=== PATIENT | female | born 1975 | race Caucasian/White ===

== ENCOUNTER 2017-07-13 12:39 | Inpatient (IN) | payer SELFPAY ==
[~2017-07-13] VITALS: Ht 154.9 cm; Wt 67.2 kg
[2017-07-13] MEDS: SODIUM CHLOR 0.9% 1000 ML INJ 1,000 ML IV SCH (02:19)
[2017-07-13 12:53] VITALS: BP 114/63; PULSE 114; RESP 22; TEMP 100.6; O2SAT 100
[2017-07-13] MEDS ORDERED: SODIUM CHLOR 0.9% 1000 ML INJ 1,000 ML IV SCH (14:18)
[2017-07-13 14:21] LABS: AUTOMATED NEUTROPHIL # 10.8 TH/MM3 (1.8-7.7); BASOPHIL % 0.1 % (0.0-2.0); HEMATOCRIT 40.4 % (35.0-46.0); HEMOGLOBIN 13.5 GM/DL (11.6-15.3); LYMPH % 3.9 % (9.0-44.0); LYMPHOCYTE # 0.5 TH/MM3 (1.0-4.8); MEAN CELL VOLUME 91.2 FL (80.0-100.0); MEAN CORPUSCULAR HEMOGLOBIN 30.5 PG (27.0-34.0); MEAN CORPUSCULAR HGB CONC 33.4 % (32.0-36.0); MEAN PLATELET VOLUME 8.6 FL (7.0-11.0); MONOCYTE # 0.5 TH/MM3 (0-0.9); PLATELET COUNT 229 TH/MM3 (150-450); RED BLOOD COUNT 4.43 MIL/MM3 (4.00-5.30); RED CELL DISTRIBUTION WIDTH 13.8 % (11.6-17.2); WHITE BLOOD COUNT 11.7 TH/MM3 (4.0-11.0)
[2017-07-13] MEDS ORDERED: SODIUM CHLORIDE 0.9% FLUSH 10 ML FLUSH IV FLUSH PRN ×2 (14:30→23:30)
[2017-07-13] MEDS ORDERED: KETOROLAC TROMETHAMINE 30 MG/ML (IVP) VIAL IV PUSH ONE (14:30)
[2017-07-13] MEDS ORDERED: ONDANSETRON HCL 4 MG/2 ML VIAL IV PUSH ONE (14:30)
[2017-07-13 14:31] LABS: BACTERIA, URINE RARE /hpf; BILIRUBIN, URINE NEG (NEG); BLOOD, URINE NEG (NEG); GLUCOSE,URINE NEG (NEG); KETONE, URINE 40 mg/dL (NEG); MUCUS URINE FEW /lpf (OCC); NITRITE,URINE NEG (NEG); PH, URINE 8.5 (5.0-8.5); SQUAMOUS EPITHELIAL CELL URINE 5 /hpf (0-5); URINE COLOR YELLOW (YELLW/STRAW); URINE LEUKOCYTE ESTERASE SMALL (NEG)
[2017-07-13 14:41] LABS: ALBUMIN 3.3 GM/DL (3.4-5.0); ALT (GPT) 81 U/L (10-53); AST (GOT) 70 U/L (15-37); BICARBONATE 24.2 MEQ/L (21.0-32.0); BLOOD UREA NITROGEN 10 MG/DL (7-18); CHLORIDE 101 MEQ/L (98-107); CREATININE 0.83 MG/DL (0.50-1.00); GLOMERULAR FILTRATION RATE 77 ML/MIN (>89); GLUCOSE,RANDOM 104 MG/DL (74-106); SODIUM (NA) 136 MEQ/L (136-145)
[2017-07-13 14:43] LABS: ALKALINE PHOSPHATASE 73 U/L (45-117); TOTAL BILIRUBIN ADULT 0.3 MG/DL (0.2-1.0); TOTAL PROTEIN 7.5 GM/DL (6.4-8.2)
--- NOTE | 2017-07-13 15:27 | PD ---
HPI Chief Complaint: Abdominal Pain Time Seen by Provider: 14:16 Travel History International Travel<30 days: No Contact w/Intl Traveler<30days: No Traveled to known affect area: No History of Present Illness HPI 41-year-old female presents to the emergency department with complaint of tailbone pain, joint pain in both of her hips, subjective fever, and vomiting 3 days. Says she is having some pelvic pain and feeling like something is coming out of her vagina after having sex for the first time a week ago after 1 year of abstinence. Denies abnormal vaginal discharge, vaginal bleeding, odor. Denies dysuria, hematuria. Denies injury. Denies IV drug use or current cancer. Denies encopresis, incontinence, saddle anesthesias. Denies paresthesias, loss of sensation, decreased range of motion, decreased strength to all extremities. Reports marijuana use. Denies alcohol use. Has tried taking MiraLAX, Metamucil, ibuprofen, children's Tylenol for symptom management. Rates pain 10/10. Describes it as a pressure. No known aggravating or relieving factors. 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 History of asthma. No known allergies. Has no other medical complaints. No other modifying factors or associated signs and symptoms. [facility] Past Medical History LMP: 2012, states she went through menopause Social History Tobacco Use: No Allergies-Medications (Allergen,Severity, Reaction): Coded Allergies: No Known Allergies (Unverified , 07/13/17) Review of Systems Except as stated in HPI: all other systems reviewed are Neg Physical Exam Narrative GENERAL: Well-nourished, well-developed female patient, in no acute distress; febrile, nontoxic-appearing SKIN: Warm and dry. HEAD: Atraumatic. Normocephalic. EYES: Pupils equal and round. No scleral icterus. No injection or drainage. ENT: Mucosa pink and moist. Airway patent. NECK: Trachea midline. CARDIOVASCULAR: Regular rate and rhythm. No murmur appreciated. RESPIRATORY: No accessory muscle use. Clear to auscultation. Breath sounds equal bilaterally. GASTROINTESTINAL: Abdomen soft, tenderness on palpation to lower abdomen, nondistended. Hepatic and splenic margins not palpable. Bowel sounds are active 4 quadrants. Nonrigid. No rebound tenderness. No guarding. MUSCULOSKELETAL: Bilateral lower extremities supple and non-tense with 2+ pedal pulses and sensory intact; with full range of motion and 5/5 strength. 2 + DTRs bilaterally. Active dorsiflexion and extension of bilateral feet. Bilateral straight leg raise is negative for low back pain. Ambulatory in room with normal gait. Sitting up in bed at 90. No obvious deformities. No clubbing. No cyanosis. No edema. BACK: Midline point tenderness on palpation of the lumbar spine. Tenderness on palpation of iliosacral area. No obvious deformities. NEUROLOGICAL: Awake and alert. Oriented 3. No obvious cranial nerve deficits. Motor grossly within normal limits. Normal speech. PSYCHIATRIC: Appropriate mood and affect; insight and judgment normal. Data Data Last Documented VS Vital Signs Date Time Temp Pulse Resp B/P (MAP) Pulse Ox O2 Delivery O2 Flow Rate FiO2 07/13/17 12:53 100.6 114 22 114/63 (80) 100 Orders Orders Complete Blood Count With Diff (07/13/17 12:58) Comprehensive Metabolic Panel (07/13/17 12:58) Lipase (07/13/17 12:58) Lactic Acid (07/13/17 12:58) Urinalysis - C+S If Indicated (07/13/17 12:58) Ed Urine Pregnancytest Poc (07/13/17 12:59) Ondansetron Inj (Zofran Inj) (07/13/17 14:30) Iv Access Insert/Monitor (07/13/17 14:18) Sodium Chlor 0.9% 1000 Ml Inj (Ns 1000 M (07/13/17 14:18) Sodium Chloride 0.9% Flush (Ns Flush) (07/13/17 14:30) Ketorolac Inj (Toradol Inj) (07/13/17 14:30) Urine Culture (07/13/17 13:29) Ct Abd/Pel W Iv Contrast(Rout) (07/13/17 14:33) Diphenhydramine Inj (Benadryl Inj) (07/13/17 15:30) Prochlorperazine Inj (Compazine Inj) (07/13/17 15:30) Ct Lumb Spine W Iv Contrast (07/13/17 ) Ceftriaxone Inj (Rocephin Inj) (07/13/17 16:00) Lactic Acid (07/13/17 18:57) Acetaminophen (Tylenol) (07/13/17 20:00) Ibuprofen (Motrin) (07/13/17 20:00) Admit Order (Ed Use Only) (07/13/17 20:12) Labs Laboratory Tests Test 07/13/17 13:29 07/13/17 14:24 White Blood Count 11.7 TH/MM3 Red Blood Count 4.43 MIL/MM3 Hemoglobin 13.5 GM/DL Hematocrit 40.4 % Mean Corpuscular Volume 91.2 FL Mean Corpuscular Hemoglobin 30.5 PG Mean Corpuscular Hemoglobin Concent 33.4 % Red Cell Distribution Width 13.8 % Platelet Count 229 TH/MM3 Mean Platelet Volume 8.6 FL Neutrophils (%) (Auto) 92.0 % Lymphocytes (%) (Auto) 3.9 % Monocytes (%) (Auto) 4.0 % Eosinophils (%) (Auto) 0.0 % Basophils (%) (Auto) 0.1 % Neutrophils # (Auto) 10.8 TH/MM3 Lymphocytes # (Auto) 0.5 TH/MM3 Monocytes # (Auto) 0.5 TH/MM3 Eosinophils # (Auto) 0.0 TH/MM3 Basophils # (Auto) 0.0 TH/MM3 CBC Comment DIFF FINAL Differential Comment Urine Color YELLOW Urine Turbidity HAZY Urine pH 8.5 Urine Specific [place] 1.028 Urine Protein 100 mg/dL Urine Glucose (UA) NEG mg/dL Urine Ketones 40 mg/dL Urine Occult Blood NEG Urine Nitrite NEG Urine Bilirubin NEG Urine Urobilinogen LESS THAN 2.0 MG/DL Urine Leukocyte Esterase SMALL Urine RBC 3 /hpf Urine WBC 39 /hpf Urine Squamous Epithelial Cells 5 /hpf Urine Bacteria RARE /hpf Urine Mucus FEW /lpf Microscopic Urinalysis Comment CULTURE INDICATED Blood Urea Nitrogen 10 MG/DL Creatinine 0.83 MG/DL Random Glucose 104 MG/DL Total Protein 7.5 GM/DL Albumin 3.3 GM/DL Calcium Level 9.0 MG/DL Alkaline Phosphatase 73 U/L Aspartate Amino Transf (AST/SGOT) 70 U/L Alanine Aminotransferase (ALT/SGPT) 81 U/L Total Bilirubin 0.3 MG/DL Sodium Level 136 MEQ/L Potassium Level 3.7 MEQ/L Chloride Level 101 MEQ/L Carbon Dioxide Level 24.2 MEQ/L Anion Gap 11 MEQ/L Estimat Glomerular Filtration Rate 77 ML/MIN Lipase 100 U/L Lactic Acid Level 2.3 mmol/L MDM Medical Decision Making Medical Screen Exam Complete: Yes Emergency Medical Condition: Yes Medical Record Reviewed: Yes Differential Diagnosis UTI, urosepsis, sepsis, PID, pyelonephritis, appendicitis Narrative Course 41-year-old female with lower abdominal pain. Patient has fever and is nontoxic -appearing. Septic workup initiated in triage. I discussed the patient with Dr. Cartwright my attending physician, and she evaluated the patient and plan of care discussed. CT abdomen/pelvis, CT lumbar spine ordered. IV fluids, Toradol , Zofran ordered. 1549: CBC unremarkable. CMP unremarkable. Lipase 100. lactic acid 2.3. Urinalysis with signs of infection. Dr. Cartwright ordered antibiotics. 185: CT abdomen/pelvis and CT lumbar spine conclude: Abdomen/Pelvis CT 07/13/17 1433 Signed Impressions: Service Date/Time: Thursday, July 13, 2017 15:47 - CONCLUSION: 1. There is a very small amount of free fluid in the deep pelvis which is well within the range of physiologic for a menstruating female. 2. Otherwise, no acute intraperitoneal or pelvic process to explain current clinical symptoms. Patient appears to be status post appendectomy. 3. Incidental note of a 3.5 cm diverticulum off the second portion of the duodenum Chan Gerber MD Lumbar Spine CT 07/13/17 0000 Signed Impressions: Service Date/Time: Thursday, July 13, 2017 15:47 - CONCLUSION: 1. Severe facet degeneration and hypertrophy at L4-5 bilaterally producing a grade 1 anterolisthesis of L4 on 5. This does encroach on the left neural foramina and could compromise the left L4 nerve root. 2. Mild facet hypertrophy bilaterally at L5-S1. Spinal canal and neural foramina are patent. 3. Spinal canal and neural foramina are patent all remaining levels without nerve root compromise. Chan Gerber MD 1899: Report given to Dr. Dixon and he assumed patient care at this time. See his note for final patient disposition. Samantha Melchor Jul 13, 2017 15:27
[2017-07-13] MEDS ORDERED: diphenhydrAMINE HCL 50 MG/ML VIAL IV PUSH ONE (15:30)
[2017-07-13] MEDS ORDERED: PROCHLORPERAZINE INJ 10 MG/2 ML VIAL IV PUSH ONE (15:30)
--- NOTE | 2017-07-13 15:47 | PD ---
Physical Exam Date Seen by Provider: Jul 13, 2017 Narrative This patient's chief complaint to me as nausea and vomiting. Data Data Last Documented VS Vital Signs Date Time Temp Pulse Resp B/P (MAP) Pulse Ox O2 Delivery O2 Flow Rate FiO2 07/13/17 12:53 100.6 114 22 114/63 (80) 100 Orders Orders Complete Blood Count With Diff (07/13/17 12:58) Comprehensive Metabolic Panel (07/13/17 12:58) Lipase (07/13/17 12:58) Lactic Acid (07/13/17 12:58) Urinalysis - C+S If Indicated (07/13/17 12:58) Ed Urine Pregnancytest Poc (07/13/17 12:59) Ondansetron Inj (Zofran Inj) (07/13/17 14:30) Iv Access Insert/Monitor (07/13/17 14:18) Sodium Chlor 0.9% 1000 Ml Inj (Ns 1000 M (07/13/17 14:18) Sodium Chloride 0.9% Flush (Ns Flush) (07/13/17 14:30) Ketorolac Inj (Toradol Inj) (07/13/17 14:30) Urine Culture (07/13/17 13:29) Ct Abd/Pel W Iv Contrast(Rout) (07/13/17 14:33) Diphenhydramine Inj (Benadryl Inj) (07/13/17 15:30) Prochlorperazine Inj (Compazine Inj) (07/13/17 15:30) Ct Lumb Spine W Iv Contrast (07/13/17 ) Labs Laboratory Tests Test 07/13/17 13:29 07/13/17 14:24 White Blood Count 11.7 TH/MM3 Red Blood Count 4.43 MIL/MM3 Hemoglobin 13.5 GM/DL Hematocrit 40.4 % Mean Corpuscular Volume 91.2 FL Mean Corpuscular Hemoglobin 30.5 PG Mean Corpuscular Hemoglobin Concent 33.4 % Red Cell Distribution Width 13.8 % Platelet Count 229 TH/MM3 Mean Platelet Volume 8.6 FL Neutrophils (%) (Auto) 92.0 % Lymphocytes (%) (Auto) 3.9 % Monocytes (%) (Auto) 4.0 % Eosinophils (%) (Auto) 0.0 % Basophils (%) (Auto) 0.1 % Neutrophils # (Auto) 10.8 TH/MM3 Lymphocytes # (Auto) 0.5 TH/MM3 Monocytes # (Auto) 0.5 TH/MM3 Eosinophils # (Auto) 0.0 TH/MM3 Basophils # (Auto) 0.0 TH/MM3 CBC Comment DIFF FINAL Differential Comment Urine Color YELLOW Urine Turbidity HAZY Urine pH 8.5 Urine Specific [place] 1.028 Urine Protein 100 mg/dL Urine Glucose (UA) NEG mg/dL Urine Ketones 40 mg/dL Urine Occult Blood NEG Urine Nitrite NEG Urine Bilirubin NEG Urine Urobilinogen LESS THAN 2.0 MG/DL Urine Leukocyte Esterase SMALL Urine RBC 3 /hpf Urine WBC 39 /hpf Urine Squamous Epithelial Cells 5 /hpf Urine Bacteria RARE /hpf Urine Mucus FEW /lpf Microscopic Urinalysis Comment CULTURE INDICATED Blood Urea Nitrogen 10 MG/DL Creatinine 0.83 MG/DL Random Glucose 104 MG/DL Total Protein 7.5 GM/DL Albumin 3.3 GM/DL Calcium Level 9.0 MG/DL Alkaline Phosphatase 73 U/L Aspartate Amino Transf (AST/SGOT) 70 U/L Alanine Aminotransferase (ALT/SGPT) 81 U/L Total Bilirubin 0.3 MG/DL Sodium Level 136 MEQ/L Potassium Level 3.7 MEQ/L Chloride Level 101 MEQ/L Carbon Dioxide Level 24.2 MEQ/L Anion Gap 11 MEQ/L Estimat Glomerular Filtration Rate 77 ML/MIN Lipase 100 U/L Lactic Acid Level 2.3 mmol/L MDM Supervised Visit with DORINDA: Yes Narrative Course I, Dr. Cartwright, have reviewed the advance practice practitioner's documentation and am in agreement, met with the patient face to face, made the diagnosis, and the medical decision making was done by me. *My assessment and Findings: This patient is lying on the stretcher on her left side with an IV going rocking back and forth and complaining with nausea. I have ordered Compazine and Benadryl. CBC & BMP Diagram 07/13/17 13:29 Total Protein 7.5, Albumin 3.3 L, Calcium Level 9.0, Alkaline Phosphatase 73, Aspartate Amino Transf (AST/SGOT) 70 H, Alanine Aminotransferase (ALT/SGPT) 81 H , Total Bilirubin 0.3, lipase 100 HCG is negative. Lactic acid 2.3 UA shows small leukocyte esterase, 39 not blood cells and rare bacteria Please see Samantha Melchor NP's note for results of laboratory and radiographic evaluation , ED course, final diagnosis and disposition Please see Samantha Melchor NP's note for results of laboratory and radiographic evaluation, ED course, final diagnosis and disposition Delia Cartwright MD Jul 13, 2017 15:47
[2017-07-13] MEDS ORDERED: cefTRIAXone INJ 1,000 MG in SODIUM CHLORIDE 0.9% INJ 100 ML IV ONE (16:00)
--- NOTE | 2017-07-13 16:52 | RADRPT ---
EXAM DATE/TIME: 07/13/2017 15:47 [facility] COMPARISON: No previous studies available for comparison. INDICATIONS : Abdominal pain. IV CONTRAST: 81 cc Omnipaque 350 (iohexol) IV ; Cumulative dose for multiple exams. ORAL CONTRAST: No oral contrast ingested. RADIATION DOSE: 6.64 CTDIvol (mGy) MEDICAL HISTORY : Uterine cancer SURGICAL HISTORY : Appendectomy. ENCOUNTER: Initial ACUITY: 1 day PAIN SCALE: 6/10 LOCATION: Abdomen TECHNIQUE: Volumetric scanning of the abdomen and pelvis was performed. Using automated exposure control and ad justment of the mA and/or kV according to patient size, radiation dose was kept as low as reasonably achievable to obtain optimal diagnostic quality images. DICOM format image data is available electro nically for review and comparison. FINDINGS: LOWER LUNGS: The visualized lower lungs are clear. LIVER: Homogeneous density without lesion. There is no dilation of the biliary tree. No calcified gallston es. SPLEEN: Normal size without lesion. PANCREAS: Within normal limits. KIDNEYS: Normal in size and shape. There is no mass, stone or hydronephrosis. ADRENAL GLANDS: Within normal limits. VASCULAR: There is no aortic aneurysm. BOWEL/MESENTERY: Prominent, 3.5 cm diverticulum off the second portion of the duodenum. 5 surgical nate/sutures are seen at the base of the cecum characteristic of prior appendectomy. There is small amount of free fl uid in the deep pelvis of uncertain etiology. ABDOMINAL WALL: Within normal limits. RETROPERITONEUM: There is no lymphadenopathy. BLADDER: No wall thickening or mass. REPRODUCTIVE: Within normal limits. INGUINAL: There is no lymphadenopathy or hernia. MUSCULOSKELETAL: Within normal limits for patient age. CONCLUSION: 1. There is a very small amount of free fluid in the deep pelvis which is well within the range of ph ysiologic for a menstruating female. 2. Otherwise, no acute intraperitoneal or pelvic process to explain current clinical symptoms. Patien t appears to be status post appendectomy. 3. Incidental note of a 3.5 cm diverticulum off the second portion of the duodenum Chan Gerber MD on July 13, 2017 at 16:44 Board Certified Radiologist. This report was verified electronically.
--- NOTE | 2017-07-13 17:47 | RADRPT ---
EXAM DATE/TIME: 07/13/2017 15:47 [facility] COMPARISON: No previous studies available for comparison. INDICATIONS : Lower back pain. IV CONTRAST: cc Omnipaque 350 (iohexol) IV ; Cumulative dose for multiple exams. RADIATION DOSE: CTDIvol (mGy) ; Reconstructed from previous dataset, no dose MEDICAL HISTORY : Uterine cancer SURGICAL HISTORY : Appendectomy. ENCOUNTER: Initial ACUITY: 1 day PAIN SCALE: 5/10 LOCATION: Lumbar region TECHNIQUE: Volumetric scanning of the lumbar spine was performed. Multiplanar reconstructions in the sagittal, coronal and oblique axial planes were performed. Using automated exposure control and adjustment of the mA and/or kV according to patient size, radiation dose was kept as low as reasonably achievable t o obtain optimal diagnostic quality images. DICOM format image data is available electronically for review and comparison. FINDINGS: Sagittal and coronal reconstructions show mild anterolisthesis of L4 on 5. Far lateral images show ma rked facet hypertrophy at L4. Vertebral heights are maintained throughout without fracture. Spinal ca nal appears to be widely patent throughout. L1-L2: The disc, uncovertebral joints, central canal, foramina, and facets are normal. L2-L3: The disc, uncovertebral joints, central canal, foramina, and facets are normal. L3-L4: The disc, uncovertebral joints, central canal, foramina, and facets are normal. L4-. L5-. CONCLUSION: 1. Severe facet degeneration and hypertrophy at L4-5 bilaterally producing a grade 1 anterolisthesis of L4 on 5. This does encroach on the left neural foramina and could compromise the left L4 nerve khushi t. 2. Mild facet hypertrophy bilaterally at L5-S1. Spinal canal and neural foramina are patent. 3. Spinal canal and neural foramina are patent all remaining levels without nerve root compromise. Chan Gerber MD on July 13, 2017 at 17:40 Board Certified Radiologist. This report was verified electronically.
[2017-07-13] MEDS ORDERED: IBUPROFEN 600 MG TAB PO ONE (20:00)
[2017-07-13] MEDS ORDERED: ACETAMINOPHEN 500 MG CPLT PO ONE (20:00)
--- NOTE | 2017-07-13 20:16 | PD ---
Data Data Last Documented VS Vital Signs Date Time Temp Pulse Resp B/P (MAP) Pulse Ox O2 Delivery O2 Flow Rate FiO2 07/13/17 12:53 100.6 114 22 114/63 (80) 100 Orders Orders Complete Blood Count With Diff (07/13/17 12:58) Comprehensive Metabolic Panel (07/13/17 12:58) Lipase (07/13/17 12:58) Lactic Acid (07/13/17 12:58) Urinalysis - C+S If Indicated (07/13/17 12:58) Ed Urine Pregnancytest Poc (07/13/17 12:59) Ondansetron Inj (Zofran Inj) (07/13/17 14:30) Iv Access Insert/Monitor (07/13/17 14:18) Sodium Chlor 0.9% 1000 Ml Inj (Ns 1000 M (07/13/17 14:18) Sodium Chloride 0.9% Flush (Ns Flush) (07/13/17 14:30) Ketorolac Inj (Toradol Inj) (07/13/17 14:30) Urine Culture (07/13/17 13:29) Ct Abd/Pel W Iv Contrast(Rout) (07/13/17 14:33) Diphenhydramine Inj (Benadryl Inj) (07/13/17 15:30) Prochlorperazine Inj (Compazine Inj) (07/13/17 15:30) Ct Lumb Spine W Iv Contrast (07/13/17 ) Ceftriaxone Inj (Rocephin Inj) (07/13/17 16:00) Lactic Acid (07/13/17 18:57) Acetaminophen (Tylenol) (07/13/17 20:00) Ibuprofen (Motrin) (07/13/17 20:00) Admit Order (Ed Use Only) (07/13/17 20:12) Labs Laboratory Tests Test 07/13/17 13:29 07/13/17 14:24 White Blood Count 11.7 TH/MM3 Red Blood Count 4.43 MIL/MM3 Hemoglobin 13.5 GM/DL Hematocrit 40.4 % Mean Corpuscular Volume 91.2 FL Mean Corpuscular Hemoglobin 30.5 PG Mean Corpuscular Hemoglobin Concent 33.4 % Red Cell Distribution Width 13.8 % Platelet Count 229 TH/MM3 Mean Platelet Volume 8.6 FL Neutrophils (%) (Auto) 92.0 % Lymphocytes (%) (Auto) 3.9 % Monocytes (%) (Auto) 4.0 % Eosinophils (%) (Auto) 0.0 % Basophils (%) (Auto) 0.1 % Neutrophils # (Auto) 10.8 TH/MM3 Lymphocytes # (Auto) 0.5 TH/MM3 Monocytes # (Auto) 0.5 TH/MM3 Eosinophils # (Auto) 0.0 TH/MM3 Basophils # (Auto) 0.0 TH/MM3 CBC Comment DIFF FINAL Differential Comment Urine Color YELLOW Urine Turbidity HAZY Urine pH 8.5 Urine Specific [place] 1.028 Urine Protein 100 mg/dL Urine Glucose (UA) NEG mg/dL Urine Ketones 40 mg/dL Urine Occult Blood NEG Urine Nitrite NEG Urine Bilirubin NEG Urine Urobilinogen LESS THAN 2.0 MG/DL Urine Leukocyte Esterase SMALL Urine RBC 3 /hpf Urine WBC 39 /hpf Urine Squamous Epithelial Cells 5 /hpf Urine Bacteria RARE /hpf Urine Mucus FEW /lpf Microscopic Urinalysis Comment CULTURE INDICATED Blood Urea Nitrogen 10 MG/DL Creatinine 0.83 MG/DL Random Glucose 104 MG/DL Total Protein 7.5 GM/DL Albumin 3.3 GM/DL Calcium Level 9.0 MG/DL Alkaline Phosphatase 73 U/L Aspartate Amino Transf (AST/SGOT) 70 U/L Alanine Aminotransferase (ALT/SGPT) 81 U/L Total Bilirubin 0.3 MG/DL Sodium Level 136 MEQ/L Potassium Level 3.7 MEQ/L Chloride Level 101 MEQ/L Carbon Dioxide Level 24.2 MEQ/L Anion Gap 11 MEQ/L Estimat Glomerular Filtration Rate 77 ML/MIN Lipase 100 U/L Lactic Acid Level 2.3 mmol/L [facility] Supervised Visit with DORINDA: No Narrative Course This case checked out to me at 7 PM. I reviewed the entirety of the workup and then went in with the nurse to evaluate the patient. At that time she has a temperature of 103.2 and is tachycardic and still having nausea and vomiting. Patient has fever and flank pain and pelvic pain but has not had a pelvic exam. I did a pelvic exam in presence of the nurse. She has a lot of scarring in the vault due to her radiation therapy from cancer. I do not see any sign of infection however. No discharge etc. Given her fever and tachycardia and elevated lactate she meets criteria for severe sepsis. She is still nauseous and vomiting despite being here about 7 hours. I gave her Tylenol and Motrin for fever She has had IV Rocephin She does not have any physician or any real means to get any follow-up in the near future. She will require admission for IV antibiotics I placed a call to the hospitalist to discuss Sepsis Criteria SIRS Criteria (2 or more): Temp > 100.9 or < 96.8, Heart rate over 90 Sepsis Criteria (SIRS+source): Infect source susp/known Severe Sepsis (+one): Lactate >2 Criteria Outcome: Meets severe sepsis criteria Diagnosis Primary Impression: Severe sepsis Additional Impression: Pyelonephritis Admitting Information Admitting Physician Requests: Admit Irvin Dixon MD Jul 13, 2017 20:16
[2017-07-13] MEDS ORDERED: SODIUM CHLOR 0.9% 1000 ML INJ 1,000 ML IV ONE (20:30)
[2017-07-13] MEDS ORDERED: NALOXONE HCL 0.4 MG/ML AMP IV PUSH PRN (23:30)
--- NOTE | 2017-07-13 23:53 | HHI.HP ---
[facility] Service [facility] Primary Care Physician No Primary Care Physician Admission Diagnosis severe sepsis from pyelonephritis Diagnoses: Travel History International Travel<30 Days: No Contact w/Intl Traveler <30 Da: No Traveled to Known Affected Are: No History of Present Illness 41-year-old female with a past medical history significant for hyperlipidemia and hyperthyroidism presents to the emergency department for the evaluation of constipation, emesis and body aches 3 days. The patient reports that she initially started feeling weak and ill 3 days ago. She denies any dysuria but endorses increased urinary frequency. She recently relocated from [place] and does not have a primary care physician. She reports that she was recently incarcerated and during that time was told that her thyroid was "high" and her cholesterol was elevated. She denies any chest pain or shortness of breath. No abdominal pain. Positive constipation/emesis. No fevers/chills. No lateralizing signs/symptoms. Review of Systems Except as stated in HPI: all other systems reviewed are Neg Past Family Social History Past Medical History Hyperlipidemia Hyperthyroidism History of uterine cancer status post chemo/radiation Past Surgical History Appendectomy Left knee surgery Allergies: Coded Allergies: No Known Allergies (Unverified , 07/13/17) Family History Negative for CAD/DM Social History Smokes approximately a quarter pack per day. Denies alcohol. Positive marijuana. Denies all other illicit drugs. Physical Exam Vital Signs Vital Signs Date Time Temp Pulse Resp B/P (MAP) Pulse Ox O2 Delivery O2 Flow Rate FiO2 07/13/17 12:53 100.6 114 22 114/63 (80) 100 Physical Exam GENERAL: female lying in bed SKIN: No rashes, ecchymoses or lesions. Cool and dry. HEAD: Atraumatic. Normocephalic. No temporal or scalp tenderness. EYES: Pupils equal round and reactive. Extraocular motions intact. No scleral icterus. No injection or drainage. ENT: Nose without bleeding, purulent drainage or septal hematoma. Throat without erythema, tonsillar hypertrophy or exudate. Uvula midline. Airway patent. NECK: Trachea midline. No JVD or lymphadenopathy. Supple, nontender, no meningeal signs. CARDIOVASCULAR: Regular rate and rhythm without murmurs, gallops, or rubs. RESPIRATORY: Clear to auscultation. Breath sounds equal bilaterally. No wheezes , rales, or rhonchi. GASTROINTESTINAL: Abdomen soft, non-tender, nondistended. No hepato-splenomegaly , or palpable masses. No guarding. Mild pelvic tenderness. : Positive CVA tenderness right greater than left MUSCULOSKELETAL: Extremities without clubbing, cyanosis, or edema. No joint tenderness, effusion, or edema noted. No calf tenderness. NEUROLOGICAL: Awake and alert. Cranial nerves II through XII intact. Motor and sensory grossly within normal limits. Normal speech. Laboratory Laboratory Tests Test 07/13/17 13:29 07/13/17 14:24 07/13/17 22:26 White Blood Count 11.7 Red Blood Count 4.43 Hemoglobin 13.5 Hematocrit 40.4 Mean Corpuscular Volume 91.2 Mean Corpuscular Hemoglobin 30.5 Mean Corpuscular Hemoglobin Concent 33.4 Red Cell Distribution Width 13.8 Platelet Count 229 Mean Platelet Volume 8.6 Neutrophils (%) (Auto) 92.0 Lymphocytes (%) (Auto) 3.9 Monocytes (%) (Auto) 4.0 Eosinophils (%) (Auto) 0.0 Basophils (%) (Auto) 0.1 Neutrophils # (Auto) 10.8 Lymphocytes # (Auto) 0.5 Monocytes # (Auto) 0.5 Eosinophils # (Auto) 0.0 Basophils # (Auto) 0.0 CBC Comment DIFF FINAL Differential Comment Urine Color YELLOW Urine Turbidity HAZY Urine pH 8.5 Urine Specific Holden 1.028 Urine Protein 100 Urine Glucose (UA) NEG Urine Ketones 40 Urine Occult Blood NEG Urine Nitrite NEG Urine Bilirubin NEG Urine Urobilinogen LESS THAN 2.0 Urine Leukocyte Esterase SMALL Urine RBC 3 Urine WBC 39 Urine Squamous Epithelial Cells 5 Urine Bacteria RARE Urine Mucus FEW Microscopic Urinalysis Comment CULTURE INDICATED Blood Urea Nitrogen 10 Creatinine 0.83 Random Glucose 104 Total Protein 7.5 Albumin 3.3 Calcium Level 9.0 Alkaline Phosphatase 73 Aspartate Amino Transf (AST/SGOT) 70 Alanine Aminotransferase (ALT/SGPT) 81 Total Bilirubin 0.3 Sodium Level 136 Potassium Level 3.7 Chloride Level 101 Carbon Dioxide Level 24.2 Anion Gap 11 Estimat Glomerular Filtration Rate 77 Lipase 100 Lactic Acid Level 2.3 0.6 Date/Time Source Procedure Growth Status 07/13/17 13:29 Urine Clean Catch Urine Culture Pending Received Result Diagram: 07/13/17 1329 07/13/17 1329 Caprini VTE Risk Assessment Caprini VTE Risk Assessment: No/Low Risk (score <= 1) Caprini Risk Assessment Model Point Value = 1 Point Value = 2 Point Value = 3 Point Value = 5 Age 41-60 Minor surgery BMI > 25 kg/m2 Swollen legs Varicose veins or History of unexplained or recurrent spontaneous Oral contraceptives or hormone replacement Sepsis (< 1 month) Serious lung disease, including pneumonia (< 1 month) Abnormal pulmonary function Acute myocardial infarction Congestive heart failure (< 1 month) History of inflammatory bowel disease Medical patient at bed rest Age 61-74 Arthroscopic surgery Major open surgery (> 45 min) Laparoscopic surgery (> 45 min) Malignancy Confined to bed (> 72 hours) Immobilizing plaster cast Central venous access Age >= 75 History of VTE Family history of VTE Factor V Leiden Prothrombin [id number] Lupus anticoagulant Anticardiolipin antibodies Elevated serum homocysteine Heparin-induced thrombocytopenia Other congenital or acquired thrombophilia Stroke (< 1 month) Elective arthroplasty Hip, pelvis, or leg fracture Acute spinal cord injury (< 1 month) Prophylaxis Regimen Total Risk Factor Score Risk Level Prophylaxis Regimen 0-1 Low Early ambulation 2 Moderate Order ONE of the following: *Sequential Compression Device (SCD) *Heparin 5000 units SQ BID 3-4 Higher Order ONE of the following medications: *Heparin 5000 units SQ TID *Enoxaparin/Lovenox 40 mg SQ daily (WT < 150 kg, CrCl > 30 mL/min) *Enoxaparin/Lovenox 30 mg SQ daily (WT < 150 kg, CrCl > 10-29 mL/min) *Enoxaparin/Lovenox 30 mg SQ BID (WT < 150 kg, CrCl > 30 mL/min) AND/OR *Sequential Compression Device (SCD) 5 or more Highest Order ONE of the following medications: *Heparin 5000 units SQ TID (Preferred with Epidurals) *Enoxaparin/Lovenox 40 mg SQ daily (WT < 150 kg, CrCl > 30 mL/min) *Enoxaparin/Lovenox 30 mg SQ daily (WT < 150 kg, CrCl > 10-29 mL/min) *Enoxaparin/Lovenox 30 mg SQ BID (WT < 150 kg, CrCl > 30 mL/min) AND *Sequential Compression Device (SCD) Assessment and Plan Assessment and Plan Assessment/plan: 1. Pyelonephritis/sepsis Patient with fever, leukocytosis, elevated lactic acid UA consistent with urinary tract infection and positive CVA tenderness Rocephin Urine/blood cultures pending IV fluid hydration 2. Hyperlipidemia Patient without PCP, does not take medications Recently diagnosed while incarcerated Lipid profile pending Initiate statin if appropriate 3. ? Hyperthyroidism TSH pending Case management consulted to assist with outpatient follow-up FEN Regular diet Electrolytes: Monitor and replete as needed NS at 100 cc/hour Physician Certification 2 Midnight Certification Type: Admission for Inpatient Services Order for Inpatient Services The services are ordered in accordance with Medicare regulations or non- Medicare payer requirements, as applicable. In the case of services not specified as inpatient-only, they are appropriately provided as inpatient services in accordance with the 2-midnight benchmark. Estimated LOS (days): 2 2 days is the estimated time the patient will need to remain in the hospital, assuming treatment plan goals are met and no additional complications. Post-Hospital Plan: Not yet determined Anni Hernandez MD Jul 13, 2017 23:53
[2017-07-14 00:35] VITALS: BP 95/54; PULSE 85; RESP 17; TEMP 98.1; O2SAT 97
[2017-07-14 01:48] LABS: AUTOMATED NEUTROPHIL # 8.4 TH/MM3 (1.8-7.7); BASOPHIL % 0.1 % (0.0-2.0); EOSINOPHIL % 0.1 % (0.0-4.0); HEMATOCRIT 32.7 % (35.0-46.0); HEMOGLOBIN 10.9 GM/DL (11.6-15.3); LYMPH % 11.3 % (9.0-44.0); LYMPHOCYTE # 1.1 TH/MM3 (1.0-4.8); MEAN CELL VOLUME 92.3 FL (80.0-100.0); MEAN CORPUSCULAR HEMOGLOBIN 30.8 PG (27.0-34.0); MEAN CORPUSCULAR HGB CONC 33.4 % (32.0-36.0); MEAN PLATELET VOLUME 8.5 FL (7.0-11.0); MONO % 5.8 % (0.0-8.0); MONOCYTE # 0.6 TH/MM3 (0-0.9); NEUT % 82.7 % (16.0-70.0); PLATELET COUNT 185 TH/MM3 (150-450); RED BLOOD COUNT 3.54 MIL/MM3 (4.00-5.30); WHITE BLOOD COUNT 10.1 TH/MM3 (4.0-11.0)
[2017-07-14 02:04] LABS: ALBUMIN 2.2 GM/DL (3.4-5.0); BICARBONATE 19.2 MEQ/L (21.0-32.0); CALCIUM 7.3 MG/DL (8.5-10.1); CALCIUM-PROTEIN CORRECTED 8.1 MG/DL (8.5-10.1); CHOLESTEROL/ HDL RATIO 2.09 RATIO; CREATININE 0.66 MG/DL (0.50-1.00); HDL CHOLESTEROL 49.7 MG/DL (40.0-60.0); TOTAL BILIRUBIN ADULT 0.2 MG/DL (0.2-1.0); TOTAL PROTEIN 5.6 GM/DL (6.4-8.2)
[2017-07-14 04:00] VITALS: BP 95/51; PULSE 67; RESP 17; TEMP 98; O2SAT 97
[2017-07-14] MEDS: KETOROLAC TROMETHAMINE 30 MG/ML (IVP) VIAL IV PUSH PRN ×3 (06:33→18:11)
[2017-07-14] MEDS: ONDANSETRON HCL 4 MG/2 ML VIAL IVP PRN ×3 (06:47→18:12)
[2017-07-14 08:00] VITALS: BP 98/61; PULSE 82; RESP 20; TEMP 98.3; O2SAT 97
[2017-07-14] MEDS: ACETAMINOPHEN 325 MG TAB PO PRN ×3 (08:34→19:36)
[2017-07-14] MEDS: SODIUM CHLORIDE 0.9% FLUSH 10 ML FLUSH IV FLUSH SCH ×2 (08:35→20:46)
[2017-07-14 12:00] VITALS: BP 100/62; PULSE 72; RESP 20; TEMP 98.3; O2SAT 97
[2017-07-14] MEDS: SODIUM CHLOR 0.9% 1000 ML INJ 1,000 ML IV SCH ×2 (12:30→12:35)
--- NOTE | 2017-07-14 15:06 | HHI.PR ---
Subjective Remarks patient appears manic when asked if she is hearing voices - "talking to God" recently incarcerated for 260 days and DC on no meds states history of Bipolar disorder and schizophrenia - was on [facility] history of cervcial swualmous carcinoma s/p chemo and radiation in 2012 denies any fever or chills complains of urgency x 2 days, yesterday with left flank pain- now improved no hematuria allan anyvaginal discharge- Objective Vitals Vital Signs Date Time Temp Pulse Resp B/P (MAP) Pulse Ox O2 Delivery O2 Flow Rate FiO2 07/14/17 12:00 98.3 72 20 100/62 (75) 97 07/14/17 08:00 98.3 82 20 98/61 (73) 97 07/14/17 04:00 98.0 67 17 95/51 (66) 97 07/14/17 00:35 98.1 85 17 95/54 (68) 97 I/O 07/13/17 07/13/17 07/13/17 07/14/17 07/14/17 07/14/17 07:00 15:00 23:00 07:00 15:00 23:00 Intake Total 1100 ml 360 ml Balance 1100 ml 360 ml Intake Oral 360 ml IV Total 1100 ml # Voids 3 Result Diagram: 07/14/17 0100 07/14/17 0100 Imaging Last Impressions Abdomen/Pelvis CT 07/13/17 1433 Signed Impressions: Service Date/Time: Thursday, July 13, 2017 15:47 - CONCLUSION: 1. There is a very small amount of free fluid in the deep pelvis which is well within the range of physiologic for a menstruating female. 2. Otherwise, no acute intraperitoneal or pelvic process to explain current clinical symptoms. Patient appears to be status post appendectomy. 3. Incidental note of a 3.5 cm diverticulum off the second portion of the duodenum Chan Gerber MD Lumbar Spine CT 07/13/17 0000 Signed Impressions: Service Date/Time: Thursday, July 13, 2017 15:47 - CONCLUSION: 1. Severe facet degeneration and hypertrophy at L4-5 bilaterally producing a grade 1 anterolisthesis of L4 on 5. This does encroach on the left neural foramina and could compromise the left L4 nerve root. 2. Mild facet hypertrophy bilaterally at L5-S1. Spinal canal and neural foramina are patent. 3. Spinal canal and neural foramina are patent all remaining levels without nerve root compromise. Chan Gerber MD Objective Remarks appears very manic and restless anciteric lungs- no rales regular rhythm abdomen soft, good bowel sounds, no CVA tenderness on exam extremities no edema A/P Assessment and Plan 41 years old female recently incarcerated for 260 days and DC on no meds few weeks ago states history of Bipolar disorder was on [facility] history of cervcial squalmous carcinoma s/p chemo and radiation in 2012 Left Pyelonephritis/sepsis- complains of urgency Patient with fever, leukocytosis, elevated lactic acid- level down UA consistent with urinary tract infection and positive CVA tenderness Rocephin IV daily Urine/blood cultures pending IV fluid hydration Hyperlipidemia Patient without PCP, does not take medications Recently diagnosed while incarcerated Lipid profile good History of Hyperthyroidism- may be related to Dent. TSH normal History of Bipolar disorder- appears manic now Psychiatry consult- patient was on [facility] History of cervical cancer s/p chemo/radiation 2012 Mildly elevated transaminases- monitor. normal liver, biliary tree ccasional marijuana use- counselled Case management consulted to assist with outpatient follow-up FEN Regular diet Electrolytes: Monitor and replete as needed NS at 100 cc/hour Kianna Vieyra MD Jul 14, 2017 15:06
[2017-07-14 16:00] VITALS: BP 114/78; PULSE 73; RESP 20; TEMP 98.2; O2SAT 98
[2017-07-14] MEDS ORDERED: cefTRIAXone INJ 1,000 MG in SODIUM CHLORIDE 0.9% INJ 100 ML IV SCH (16:00)
[2017-07-14 20:00] VITALS: BP 108/64; PULSE 74; RESP 18; TEMP 99; O2SAT 97
[2017-07-14] MEDS ORDERED: ACETAMINOPHEN 325 MG TAB PO PRN (20:15)
--- NOTE | 2017-07-14 23:33 | PD.AMA ---
Against Medical Advice Note Discharge Disposition: Against Medical Advice Pt Condition on Discharge: Guarded AMA Statement Patient Clemencia Dumont has decided to leave the hospital against medical advice. This patient has the capacity to refuse care and understands the risks of leaving, including permanent disability and/or , and has had an opportunity to ask questions about her condition. The patient has been informed that she may return for care at any time, and follow up has been arranged/ advised. Maria Victoria Potter Jul 14, 2017 23:33
== END 2017-07-14 23:24 | disposition left against medical advice (07) | DRG 872 ==
LOC: NEPD 12:39 → NEDA 20:15 → N04A 07-14 00:25
PROVIDERS: ADMIT Internal Medicine; ATTEND Internal Medicine
DX: A41.9 Sepsis, unspecified organism (principal); N12 Tubulo-interstitial nephritis, not specified as acute or chronic; R65.20 Severe sepsis without septic shock; E78.5 Hyperlipidemia, unspecified; K59.00 Constipation, unspecified; R74.0 Nonspecific elevation of levels of transaminase and lactic acid dehydrogenase [LDH]; F31.9 Bipolar disorder, unspecified; F17.210 Nicotine dependence, cigarettes, uncomplicated; Z78.0 Asymptomatic menopausal state; Z85.42 Personal history of malignant neoplasm of other parts of uterus; Z92.21 Personal history of antineoplastic chemotherapy; Z92.3 Personal history of irradiation
CPT/HCPCS: 72132; 74177; 80053; 80061; 81001; 83605; 83690; 84443; 84703; 85025; 87040; 87086; J0696; J0780; J1200; J1885; J2405; J7030